=== PATIENT | female | born 1975 | race Caucasian/White ===

== ENCOUNTER → 2021-11-10 | Outpatient (CLI) | payer OTHER ==
[~2021-11-10] MED LIST: CEPH500 PO; EXEN5PENI; HYDACE5 PO; HYDMOR2 PO; INSR10I SC; INSULIN N; KETO10 PO; METF500 PO; PENVK250 PO; PIOG45; PIOG45 PO; PREN-16 PO; PROM25 PO; REGULAR INSULIN; RXHYDMOR2 PO; TAMS.4ER PO; THYR60; THYR60 PO; [UNRECOGNIZED DRUG - REMARK]
[2021-11-10 12:01] LABS: Creatinine Urine 30.2 mg/dL (27.00-270.00)
== END | disposition home or self-care (01) ==
LOC: LAB 09:30 → LAB SHORT 09:30
PROVIDERS: Internal Medicine
DX: I10 Essential (primary) hypertension (principal)
CPT/HCPCS: 81050; 82570

== ENCOUNTER → 2025-01-25 | Outpatient (CLI) | payer OTHER ==
[2025-01-25 20:03] LABS: Bacterial Vaginosis PCR Negative (NEGATIVE)
[2025-01-25 20:04] LABS: Candida Group, PCR DETECTED (NOT DETECT); Candida glabrata-krusei, PCR DETECTED (NOT DETECT)
== END ==
LOC: LAB SHORT 16:25 → LAB 16:25
PROVIDERS: Student in an Organized Health Care Education/Training Program
DX: N76.0 Acute vaginitis (principal)
CPT/HCPCS: 81515

== ENCOUNTER 2025-02-13 08:25 | Day surgery (SDC) | payer OTHER ==
[~2025-02-13] VITALS: Ht 160 cm; Wt 136.2 kg
[~2025-02-13 08:25] MED LIST changes: +ALBU90OI INH; +ALDACTONE100 M1 PO; +ARMOUR THYROID120 M1 PO; +BUPR150ER PO; +INSULANI SC; +LOSA50 PO; +MULTI-VITAMIN1 EAC2 PO; +Naltrexone HCl50 MG PO; +RYBELSUS14 MG PO; +STEGLATRO15 MG PO; +THERA-D2000 UNIT PO; -THYR60 PO; +TRAZ50 PO
[2025-02-13 09:34] VITALS: BP 122/55
--- NOTE | 2025-02-13 09:36 | NUR ---
Ambulatory in Day Surgery History, Chart, Medications and Allergies reviewed before start of procedure. Pre-Op teaching done. Pt verbalizes understanding. Patient States Post-Procedure ride home has been arranged.
--- NOTE | 2025-02-13 10:46 | NUR ---
02/13/25 1046 [facility] [employer] History, Chart, Medications and Allergies reviewed before start of procedure. DR PAIGE PROVIDING ANESTHESIA SEE RECORDS
[2025-02-13 11:56] VITALS: BP 137/61
[2025-02-13 12:30] VITALS: BP 135/62
--- NOTE | 2025-02-13 12:55 | NUR ---
DISCHARGE NOTE, PT A&OX4, VSS, TOLERAING PO INTAKE. CBG 74 UPON DISCHARGE- PT GOING TO GO HOME AND EAT. PT DOES NOT HAVE ANY SYMPTOMS OF HYPOGLYCEMIA AFTER EATIG A SNACK. DR GELLER AWARE. PT UP TO BR AND DRESSED INDEPENDENTLY. Patient up to Ambulate independently. Gait steady. Discharge instructions reviewed with patient. Patient verbalizes understanding. Copy given to patient to take home. Discharged via wheelchair to private car for ride home.
== END 2025-02-13 12:50 | disposition home or self-care (01) ==
LOC: ORSCMMR 08:25 → ORD 10:00 → ORSCMMR 11:00 → ORD 11:00 → ORSCMMR 12:50
PROVIDERS: Internal Medicine Gastroenterology
PROC: 0DBC8ZX Excision of Ileocecal Valve, Via Natural or Artificial Opening Endoscopic, Diagnostic (ICD-10-PCS; principal; 2025-02-13 11:00)
PROC: 0DBP8ZX Excision of Rectum, Via Natural or Artificial Opening Endoscopic, Diagnostic (ICD-10-PCS; principal; 2025-02-13 11:00)
DX: Z12.11 Encounter for screening for malignant neoplasm of colon (principal); R19.5 Other fecal abnormalities; D12.8 Benign neoplasm of rectum; D12.0 Benign neoplasm of cecum; I10 Essential (primary) hypertension; E11.9 Type 2 diabetes mellitus without complications; G47.33 Obstructive sleep apnea (adult) (pediatric); E66.01 Morbid (severe) obesity due to excess calories; Z68.43 Body mass index [BMI] 50.0-59.9, adult; Z79.4 Long term (current) use of insulin; Z79.82 Long term (current) use of aspirin; Z79.899 Other long term (current) drug therapy
CPT/HCPCS: 82947; 88305; J2704; J7120

== ENCOUNTER → 2025-03-18 | Outpatient (CLI) | payer OTHER | END | disposition home or self-care (01) | LOC: LAB SHORT 15:10 → LAB 15:10 | PROVIDERS: Student in an Organized Health Care Education/Training Program | DX: Z01.419 Encounter for gynecological examination (general) (routine) without abnormal findings (principal) | CPT/HCPCS: G0145 ==